=== PATIENT | female | born 1995 | race Caucasian/White ===

== ENCOUNTER 2017-11-23 23:20 | Emergency (ER) | payer SELFPAY ==
--- NOTE | 2017-11-23 23:26 | PDOC ---
History of Present Illness - General Chief Complaint: Constipation Stated Complaint: CONSTIPATED/POSSIBLE HEMMORROID Time Seen by Provider: 11/23/17 23:25 History Source: Patient Exam Limitations: No Limitations - History of Present Illness Initial Comments: 11/23/17 23:39 This is a 22-year-old female with intermittent chronic constipation who comes in complaining of rectal discomfort and some bleeding after she strained and had a hard stool this evening. Patient otherwise is healthy and denies any other medical complaints. She denies any abdominal pain, nausea vomiting or diarrhea. She denies any dark or tarry stools. PAST MEDICAL HISTORY: no significant history PAST SURGICAL HISTORY: no significant history FAMILY HISTORY: no pertinant history SOCIAL HISTORY: Pt lives with family and is employed. MEDICATIONS: reviewed ALLERGIES: As per nursing notes Review of Systems General: No fevers or chills, no weakness, no weight loss HEENT: No change in vision. No sore throat,. No ear pain CardioVascular: No chest pain or shortness of breath Respiratory:No cough, or wheezing. Gastrointestinal: no nausea, vomitting, diarrhea or constipation, No rectal bleeding Genitourinary: No dysuria, hematuria, or frequency Musculoskeletal: No joint or muscle pain or swelling Neurologic: No headache, vertigo, dizziness or loss of consciousness Psychiatric: nor depression Skin: No rashes or easy bruising Endocrine: no increased thirst or abnormal weight change Allergic: no skin or latex allergy All other systems reviewed and normal GENERAL: The patient is awake, alert, and fully oriented, in no acute distress. HEAD: Normal with no signs of trauma. EYES: Pupils equal, round and reactive to light, extraocular movements intact, sclera anicteric, conjunctiva clear. EXTREMITIES: Normal range of motion, no edema. RECTAL: There is no external hemorrhoids visible however on exam the exam is tender with some internal hemorrhoids palpable. Stool is brown and there was no blood on my examining finger or on the stool NEUROLOGICAL: Normal speech, normal gait. grossly intact PSYCH: Normal mood, normal affect. SKIN: Warm, Dry, normal turgor, no rashes or lesions noted. Assessment and plan: This is a 22-year-old female with chronic constipation and now some small amount of rectal bleeding earlier secondary to straining to have a hard stool. Patient does have a tender rectal exam but no gross blood. Discussed with patient management of constipation and hemorrhoids. Patient discharged home Past History - Past Medical History Allergies/Adverse Reactions: Allergies Allergy/AdvReac Type Severity Reaction Status Date / Time No Known Allergies Allergy Verified 11/23/17 23:21 Home Medications: Ambulatory Orders NK [No Known Home Medication] 11/23/17 *DC/Admit/Observation/Transfer Diagnosis at time of Disposition: Internal hemorrhoids Constipation Qualifiers: Constipation type: unspecified constipation type Qualified Code(s): K59.00 - Constipation, unspecified - Discharge Dispostion Disposition: HOME Condition at time of disposition: Stable - Referrals - Patient Instructions Additional Instructions: Physical important that you purchase a stool softer which will help with your internal hemorrhoids and make it comfortable for you when you go to the bathroom. You can purchase [id number] Dulcolax suppository and use on a daily basis as directed on the box for the next week or until your stool is soft and no longer painful to defecate. In addition to that increase water in your diet you should be drinking 6-8 glasses of water a day. Increase fiber in your diet by eating plenty of solids fruits and vegetables and also can purchase some [id number] fiber such as Metamucil and take as directed on the box. Make sure you get enough sleep and regular exercise. Return to the emergency department immediately with ANY new, persistent or worsening symptoms. Continue any medications as previously prescribed by your physician. You should follow up with your primary doctor as soon as possible regarding today's emergency department visit. . Please make sure your doctor reviews the results of your emergency evaluation. Thank you for coming to the Emergency Department today for your care. It was a pleasure to see you today. Please note that your evaluation is INCOMPLETE until you follow-up with your doctor. - Post Discharge Activity
[2017-11-23 23:27] VITALS: BP 119/76; PULSE 74; TEMP 98.3; BMI 28.1
== END 2017-11-23 23:42 | disposition home or self-care (01) ==
LOC: FER 23:20
DX: K59.00 Constipation, unspecified (principal); K64.9 Unspecified hemorrhoids
CPT/HCPCS: 99281-25